=== PATIENT | female | born 1955 | race Caucasian/White ===

== ENCOUNTER → 2016-12-02 | Outpatient (CLI) | payer BC ==
[~2016-12-02] MED LIST: ASPEC81 PO; CLID5CAP PO; EST1 PO; LSX20 PO; POTA10CA28 PO; PRM625 PO
[2016-12-02 14:14] LABS: BASO % 0.7 %; BASO ABS # 0.04 K/uL (0-0.2); COMPLETE YES; EOS % 4.1 %; HEMATOCRIT 43.1 % (37-47); LYMPH % 39.8 %; LYMPH ABS # 2.25 K/uL (1.2-3.4); MEAN CELL VOLUME 89.8 fL (80-100); MEAN CORPUSCULAR HEMOGLOBIN 30.6 pg (25-34); MEAN CORPUSCULAR HGB CONC 34.1 g/dl (32-36); MEAN PLATELET VOLUME 10.3 fL (7.4-10.4); NEUT % 44.4 %; PLATELET COUNT 365 K/uL (130-400); WHITE BLOOD COUNT 5.65 K/uL (4.8-10.8)
[2016-12-02 14:18] LABS: ALT/SGPT 36 U/L (12-78); BLOOD UREA NITROGEN 11 mg/dl (7-18); CALCIUM 9.8 mg/dl (8.5-10.1); CARBON DIOXIDE 26 mmol/L (21-32); CHLORIDE 106 mmol/L (98-107); CHOLESTEROL 228 mg/dl (0-200); GLUCOSE 90 mg/dl (70-99); SODIUM 140 mmol/L (136-145)
[2016-12-02 14:27] LABS: ALB/GLOB RATIO 1.1 (0.9-2); ALKALINE PHOSPHATASE 74 U/L (45-117); AST/SGOT 25 U/L (15-37); CHOLESTEROL/HDL RATIO 3.4; HDL CHOLESTEROL 68 mg/dl; LDL CHOLESTEROL CALCULATED 129 mg/dl; TRIGLYCERIDES 154 mg/dl (0-150); VERY LOW DENSITY LIPOPROT CALC 31 mg/dl
== END ==
LOC: C.LABSPEC 13:20
PROVIDERS: ATTEND Family Medicine
DX: E78.2 Mixed hyperlipidemia (principal); E03.9 Hypothyroidism, unspecified; Z00.00 Encounter for general adult medical examination without abnormal findings

== ENCOUNTER → 2016-12-28 | Outpatient (CLI) | payer BC ==
[2016-12-28 18:46] LABS: THYROID STIMULATING HORMONE 1.14 uIu/ml (0.300-4.500)
== END | disposition home or self-care (01) ==
LOC: C.LABSPEC 17:51
PROVIDERS: ATTEND Family Medicine
DX: E03.9 Hypothyroidism, unspecified (principal)

== ENCOUNTER → 2017-05-11 | Outpatient (CLI) | payer BC ==
--- NOTE | 2017-05-11 15:16 | MAMMOGRAPHY REPORT ---
UNILATERAL LEFT DIGITAL DIAGNOSTIC MAMMOGRAM TOMOSYNTHESIS WITH CAD AND TARGETED LEFT ULTRASOUND: 04/29 CLINICAL HISTORY: 61-year-old woman presents for follow-up in the left breast. She has a history of prior benign left breast biopsy in the upper outer quadrant, with ribbon-shaped biopsy marker clip in place. She was initially called back from screening mammography at an outside institution performed 7, for an asymmetry in the superior left breast. Additional diagnostic ultrasound and mammogram were performed which demonstrated probably benign findings on the left breast ultrasound and patient pres ents for follow-up. TECHNIQUE: Left breast tomosynthesis in addition to standard 2D mammography was performed. Current st udy was also evaluated with a Computer Aided Detection (CAD) system. COMPARISON: Comparison is made to exams dated: 09/25/2016 mammogram, 09/07/2016 mammogram, 03/18/2015 m ammogram, 04/23/2010 mammogram, 01/17/2009 mammogram - [facility], and 05/16/2008. BREAST COMPOSITION: There are scattered areas of fibroglandular density in the left breast. FINDINGS: There is a stable lobulated and circumscribed 7 mm mass with associated biopsy marker clip in the upper outer middle to posterior left breast. Decreasing nodularity bilaterally. No suspiciou s spiculated or irregular mass, asymmetry, focal area of architectural distortion or suspicious calci fications are identified in the left breast. No focal skin thickening appreciated. Targeted ultrasound was performed in the left breast with particular attention to the 1:00 and 2:00 a xes in the areas of previously described benign-appearing masses. In the 1:00 left breast, 4 cm from the nipple, a mass is no longer identified, confirming benignity. In the 2:00 left breast, 6 cm fro m the nipple, there is an oval parallel circumscribed, gently lobulated solid mass with possible asso ciated biopsy microclip. This mass currently measures 7.3 x 4.0 x 8.3 mm and is unchanged comparing to the prior ultrasound dated September 25, 2016. In the 2:00 left breast, 4 cm from the nipple, there is a morphologically normal intramammary lymph node measuring 3.9 mm. This finding is benign and no fu rther workup is needed. Incidentally seen in the 12:00 left breast, 1 cm from the nipple, is a circu mscribed gently lobulated hypoechoic solid versus cystic mass measuring 3.1 x 2.4 x 2.3 mm. This is not definitely identified on the prior ultrasound and is probably benign, never the less a six-month follow-up targeted ultrasound is recommended to ensure stability. IMPRESSION: ACR-BI-RADS CATEGORY 3: PROBABLY BENIGN, TARGETED ULTRASOUND ACR-BI-RADS CATEGORY 3: PRO BABLY BENIGN 1. There is decreasing nodularity in the left breast, with stable appearance of a previously biopsie d benign-appearing 7 mm mass in the left upper outer quadrant. Bilateral tomosynthesis mammography i s due in 6 months. 2. Sonographic findings in the left breast demonstrate a stable benign intramammary lymph node in th e 2:00 axis, 4 cm from the nipple, a stable benign-appearing solid mass in the 2:00 axis, 6 cm from t he nipple, likely the mass which was previously biopsied, and no mass in the 1:00 axis, 4 cm from the nipple, confirming benignity. As prior biopsy images are not available for review, another six-yan h follow-up targeted ultrasound is recommended in the left 2:00 axis, 6 cm from the nipple for the be nign-appearing solid mass. 3. Incidentally seen in the 12:00 left breast, 1 cm from the nipple on ultrasound, is a benign-appea ring 3 mm hypoechoic mass for which a targeted ultrasound is also recommended in 6 months to ensure s tability. These results and recommendations were discussed with the patient at the time of the exam. She tenta tively scheduled the follow-up bilateral diagnostic mammograms and repeat targeted ultrasound prior t o leaving the department. Approximately 10% of breast cancers are not detected with mammography. A negative mammographic report should not delay biopsy if a clinically suggestive mass is present. Annamarie Mckeon M.D. ay/:05/11/2017 12:43:49 Telecommunications Consultant: Kiera VENCES)(M), [facility] letter sent: Follow Up Recommended 3 BI-RADS Code: ACR-BI-RADS Category 3: Probably Benign Ultrasound BI-RADS: ACR-BI-RADS Category 3: Pr obably Benign
== END | disposition home or self-care (01) ==
LOC: C.MAMM 11:06
PROVIDERS: ATTEND Family Medicine
DX: R92.8 Other abnormal and inconclusive findings on diagnostic imaging of breast (principal); N63.20 Unspecified lump in the left breast, unspecified quadrant

== ENCOUNTER → 2017-06-22 | Outpatient (CLI) | payer BC ==
[2017-06-22 18:16] LABS: BASO % 0.5 %; BASO ABS # 0.03 K/uL (0-0.2); EOS % 4.2 %; EOS ABS # 0.25 K/uL (0-0.5); HEMATOCRIT 38.7 % (37-47); HEMOGLOBIN 13.1 g/dL (12.0-16.0); IG# 0.01 K/uL (0.00-0.02); LYMPH % 33.2 %; LYMPH ABS # 1.98 K/uL (1.2-3.4); MEAN CELL VOLUME 88.8 fL (80-100); MEAN CORPUSCULAR HGB CONC 33.9 g/dl (32-36); MEAN PLATELET VOLUME 10.1 fL (7.4-10.4); MONO % 11.9 %; MONO ABS # 0.71 K/uL (0.11-0.59); NEUT ABS # 2.98 K/uL (1.4-6.5); PLATELET COUNT 332 K/uL (130-400); RED CELL DISTRIBUTION WIDTH CV 12.9 % (11.5-14.5); RED CELL DISTRIBUTION WIDTH SD 41.8 fL (36.4-46.3); WHITE BLOOD COUNT 5.96 K/uL (4.8-10.8)
[2017-06-22 18:25] LABS: ALBUMIN 3.5 gm/dl (3.4-5.0); ALT/SGPT 70 U/L (12-78); AST/SGOT 39 U/L (15-37); BLOOD UREA NITROGEN 19 mg/dl (7-18); CALCIUM 8.8 mg/dl (8.5-10.1); CARBON DIOXIDE 24 mmol/L (21-32); GLUCOSE 107 mg/dl (70-99); POTASSIUM 3.7 mmol/L (3.5-5.1); SODIUM 138 mmol/L (136-145)
[2017-06-22 18:34] LABS: ALKALINE PHOSPHATASE 60 U/L (45-117); CHOLESTEROL 175 mg/dl (0-200); LDL CHOLESTEROL CALCULATED 85 mg/dl; TOTAL PROTEIN 7.1 gm/dl (6.4-8.2)
== END | disposition home or self-care (01) ==
LOC: C.LABSPEC 17:44
PROVIDERS: ATTEND Family Medicine
DX: E03.9 Hypothyroidism, unspecified (principal); E78.2 Mixed hyperlipidemia